=== PATIENT | female | born 1970 | race Caucasian/White ===

== ENCOUNTER 2021-02-21 13:21 | Emergency (ER) | payer BC, OTHER ==
[2021-02-21] MEDS ORDERED: CLINDAMYCIN-D5W 900 MG/50 ML*** 900 MG/50 ML BAG IV STA (15:00)
[2021-02-21] MEDS ORDERED: solu-MEDROL 125 MG, Sterile H2O 10 ml 2 ML IV ONE ×2 (15:01)
--- NOTE | 2021-02-21 15:04 | ERPHSYRPT ---
- History of Present Illness Time Seen by Provider: 02/21/21 13:34 Source: patient Exam Limitations: no limitations Patient Subjective Stated Complaint: stung by bees x2 left face 2 days ago. Triage Nursing Assessment: aaox3, c/o swelling/infection to left side of face s/p stung by bees left side of face 2 days ago. states increasing swelling pain and draining from affected area. Afebrile, resp easy, walked in. Physician History: 50 years old healthy female presented in the ER with chief complaint of swelling left lower jaw/upper neck after she got stung by a hornet 2 days ago. Patient reports having gradually increasing swelling with itching/burning sensation, blistering has been using [id number] stuff to control it but it seems worsening. This morning she woke up with discharge of serosanguineous material. Denies any difficulty breathing or swallowing. No fever or chills reported. Pain is dull burning/aching mild to moderate and feeling of tightness in the jaw. Timing/Duration: day(s) (2), constant, gradual onset, worse Quality: burning, itchy Severity: moderate Location: face, neck Possible Causes: insect sting Modifying Factors: Worsens With: scratching Associated Symptoms: change in skin texture, edema, rash, swelling/mass/lumps, tingling, No difficulty breathing Allergies/Adverse Reactions: No Known Drug Allergies Allergy (Unverified 02/21/21 18:53) Hx Tetanus, Diphtheria Vaccination/Date Given: Yes Hx Influenza Vaccination/Date Given: No Hx Pneumococcal Vaccination/Date Given: No Travel Risk - International Travel Have you traveled outside of the country in past 3 weeks: No - Coronavirus Screening Are you exhibiting any of the following symptoms?: No Close contact with a COVID-19 positive Pt in past 14-21 Days: No - Vaccine Status Have you recieved a Covid-19 vaccination: Yes News Correspondent: Moderna - Vaccination Dates Date of 2cond Vaccination (if applicable): 12/30/20 - Review of Systems Constitutional: No Symptoms Eyes: No Symptoms Ears, Nose, & Throat: Mouth Pain, Other Respiratory: No Symptoms Cardiac: No Symptoms Abdominal/Gastrointestinal: No Symptoms Genitourinary Symptoms: No Symptoms Musculoskeletal: No Symptoms Skin: Cellulitis, Induration, Pruritis, Rash, Skin Lesions Neurological: No Symptoms Psychological: No Symptoms Endocrine: No Symptoms Hematologic/Lymphatic: No Symptoms - Past Medical History Neurological History: No Pertinent History ENT History: No Pertinent History Cardiac History: No Pertinent History Respiratory History: No Pertinent History Endocrine Medical History: No Pertinent History Musculoskeletal History: No Pertinent History GI Medical History: No Pertinent History History: No Pertinent History Psycho-Social History: No Pertinent History Female Reproductive Disorders: No Pertinent History - Past Surgical History Other Surgical History: tubal ligation - Social History Smoking Status: Current every day smoker How long have you smoked: 20 yrs Exposure to second hand smoke: Yes Drug Use: none - Female History Hx Last Menstrual Period: postmenopausal Hx Now: No - Nursing Vital Signs Nursing Vital Signs: Initial Vital Signs Temperature 97.8 F 02/21/21 14:07 Pulse Rate 97 H 02/21/21 14:07 Respiratory Rate 18 02/21/21 14:07 Blood Pressure 152/86 02/21/21 14:07 O2 Sat by Pulse Oximetry 98 02/21/21 14:07 Pain Scale Pain Intensity 0 - Physical Exam General Appearance: no apparent distress, alert Eye Exam: PERRL/EOMI, eyes nml inspection Ears, Nose, Throat Exam: TMs normal, pharynx normal Neck Exam: supple, full range of motion, other (Diffuse swelling along left angle of mandible/upper neck with a central 2-3 sinuses draining with induration around, warm and tender to touch, firm consistency, 8 x 7 cm no limitation mov ements of jaw but painful), No limited range of motion Respiratory Exam: normal breath sounds, lungs clear Cardiovascular Exam: regular rate/rhythm, normal heart sounds Back Exam: normal range of motion Extremity Exam: normal inspection, normal range of motion Neurologic Exam: alert, oriented x 3, cooperative Skin Exam: normal color SpO2 Interpretation: normal SpO2: 98 O2 Delivery: Room Air Ordered Tests: Medication Summary Discontinued Medications Generic Name Dose Route Start Last Admin Trade Name Freq PRN Reason Stop Dose Admin Methylprednisolone Sodium 0 mg 02/21/21 15:01 02/21/21 15:16 Succinate 125 mg/ Sterile IV 02/21/21 15:02 125 mg Water 2 ml STAT ONE Administration Dexamethasone Sodium Phosphate Confirm 02/21/21 19:12 Decadron 10mg Inj. Administered 02/21/21 19:13 Dose 10 mg .ROUTE .STK-MED ONE Dexamethasone Sodium Phosphate 10 mg 02/21/21 19:18 02/21/21 19:22 Decadron 10mg Inj. PO 02/21/21 19:19 10 mg STAT ONE Administration Diphtheria/Tetanus/Acell Pertussis 0.5 ml 02/21/21 15:05 02/21/21 15:17 Adacel Vial IM 02/21/21 15:06 0.5 ml .ONCE ONE Administration Diphtheria/Tetanus/Acell Pertussis Confirm 02/21/21 15:12 Adacel Vial Administered 02/21/21 15:13 Dose 0.5 ml IM .STK-MED ONE Clindamycin HCl/Dextrose 900 mg in 50 mls @ 100 mls/hr 02/21/21 15:00 02/21/21 16:15 Clindamycin-D5w 900 Mg/50 Ml IV 02/21/21 15:29 Infused STAT STA Infusion Clindamycin HCl/Dextrose Confirm 02/21/21 15:12 Clindamycin-D5w 900 Mg/50 Ml Administered 02/21/21 15:13 Dose 900 mg in 50 mls @ ud IV .STK-MED ONE Methylprednisolone Sodium Succinate Confirm 02/21/21 15:11 Solu-Medrol Administered 02/21/21 15:12 Dose 125 mg .ROUTE .STK-MED ONE Sterile Water Confirm 02/21/21 15:11 Sterile H2o 10 Ml Administered 02/21/21 15:12 Dose 10 ml IJ .STK-MED ONE Lab/Rad Data: Laboratory Result Diagrams 02/21/21 14:30 02/21/21 14:30 Laboratory Results 02/21/21 02/21/21 02/21/21 Range/Units 14:59 14:30 14:30 WBC 9.5 (4.0-10.5) K/mm3 RBC 4.07 L (4.1-5.4) M/mm3 Hgb 12.3 (12.0-16.0) gm/dl Hct 38.4 (35-47) % MCV 94.3 (78-100) fl MCH 30.2 (26-32) pg MCHC 32.0 (32-36) g/dl RDW 13.6 (11.5-14.0) % Plt Count 260 (150-450) K/mm3 MPV 11.1 H (7.5-11.0) fl Gran % 71.0 H (36.0-66.0) % Eos # (Auto) 0.29 (0-0.5) Absolute Lymphs (auto) 1.70 (1.0-4.6) Absolute Monos (auto) 0.74 (0.0-1.3) Lymphocytes % 18.0 L (24.0-44.0) % Monocytes % 7.8 (0.0-12.0) % Eosinophils % 3.1 (0.00-5.0) % Basophils % 0.1 (0.0-0.4) % Absolute Granulocytes 6.72 (1.4-6.9) Basophils # 0.01 (0-0.4) Sodium 135 L (137-145) mmol/L Potassium 3.8 (3.5-5.1) mmol/L Chloride 101 (98-107) mmol/L Carbon Dioxide 23 (22-30) mmol/L Anion Gap 14.0 (5-15) MEQ/L BUN 12 (7-17) mg/dL Creatinine 0.77 (0.52-1.04) mg/dL Estimated GFR > 60.0 ML/MIN Glucose 98 (74-106) mg/dL Lactic Acid 1.3 (0.4-2.0) Calcium 8.9 (8.4-10.2) mg/dL Total Bilirubin 0.60 (0.2-1.3) mg/dL AST 33 (14-36) U/L ALT 13 (0-35) U/L Alkaline Phosphatase 94 (38-126) U/L Serum Total Protein 7.5 (6.3-8.2) g/dL Albumin 4.2 (3.5-5.0) g/dL - Progress Progress: improved, pain not gone completely Progress Note: 02/21/21 19:03 She is given symptomatic treatment for pain, Decadron and clindamycin. Has normal white count, lactate. CT revealed stranding and small amount of fluid involving portion of left face and neck with thickening of platysma and a small amount of fluid deep to the platysma extending adjacent to the left parotid gland and trace fluid extending inferiorly into the neck on the left. There is mild overlying skin thickening as well. No obvious abscess. No ENT services are available here. No ENT services available in [place]. I have called [facility] and patient does not want to go there and wants to leave. She would follow-up with her primary care. My worries about necrotizing fasciitis which is not very common in the head neck area but still can happen. Patient is aware of the fact that just taking oral antibiotics she can have the worsening of condition but still wants to leave. She reports that she will come back if has any worsening of condition or will go to higher level of care. I will continue with clindamycin and steroids to go home and outpatient follow-up Tuesday. Discussed signs symptoms of worsening which she seems understanding. Counseled pt/family regarding: lab results, diagnosis, need for follow-up, rad results - Departure Departure Disposition: Home Clinical Impression: Facial cellulitis, Cellulitis, neck Insect bite Qualifiers: Encounter type: initial encounter Site of insect bite: unspecified part of neck Qualified Code(s): S10.96XA - Insect bite of unspecified part of neck, initial encounter Condition: Stable Critical Care Time: No Referrals: JAMAR MCCARTY [Primary Care Provider] - (Tuesday for reevaluation) Instructions: Cellulitis (Skin Infection), Adult (DC) Additional Instructions: Take Tylenol/ibuprofen as needed. Continue with antibiotics and steroid. Follow-up with primary care for reevaluation. Also call ENT for possible appointment early next week. Return to ER for increasing pain, change in the color of skin, increasing discharge, fever chills or difficulty movements of neck, difficulty breathing or swallowing etc. Prescriptions: Clindamycin HCl 150 mg [Cleocin 150 mg Capsule] 2 cap PO QID 10 Days #80 cap Prednisone 20 mg [Deltasone 20 mg] 60 mg PO DAILY 5 Days #15 tablet
[2021-02-21] MEDS ORDERED: Adacel Vial IM ONE ×2 (15:05→15:12)
[2021-02-21] MEDS ORDERED: Sterile H2O 10 ml IJ ONE (15:11)
[2021-02-21] MEDS ORDERED: solu-MEDROL ONE (15:11)
[2021-02-21] MEDS ORDERED: CLINDAMYCIN-D5W 900 MG/50 ML*** 900 MG/50 ML BAG IV ONE (15:12)
[2021-02-21 15:26] LABS: Absolute Neutrophil Ct (ANC) 6.72 (1.4-6.9); BASOPHIL % 0.1 % (0.0-0.4); Basophil (Absolute #) 0.01 (0-0.4); Eosinophil % 3.1 % (0.00-5.0); Eosinophil (Absolute #) 0.29 (0-0.5); Hematocrit 38.4 % (35-47); Hemoglobin 12.3 gm/dl (12.0-16.0); Mean Cell Volume 94.3 fl (78-100); Mean Corpuscular Hemoglobin 30.2 pg (26-32); Mean Platelet Volume 11.1 fl (7.5-11.0); Monocyte (Absolute #) 0.74 (0.0-1.3); Monocytes % 7.8 % (0.0-12.0); Platelet Count 260 K/mm3 (150-450); Red Blood Count 4.07 M/mm3 (4.1-5.4); Red Cell Distribution Width 13.6 % (11.5-14.0); White Blood Count 9.5 K/mm3 (4.0-10.5)
[2021-02-21 15:35] LABS: ALBUMIN 4.2 g/dL (3.5-5.0); ALKALINE PHOSPHATASE 94 U/L (38-126); BLOOD UREA NITROGEN 12 mg/dL (7-17); CHLORIDE 101 mmol/L (98-107); Calcium 8.9 mg/dL (8.4-10.2); Carbon Dioxide 23 mmol/L (22-30); Creatinine 1 0.77 mg/dL (0.52-1.04); EST GLOMERULAR FILTRATION RATE > 60.0 ML/MIN; Glucose 98 mg/dL (74-106); Potassium 3.8 mmol/L (3.5-5.1); SGOT/AST 33 U/L (14-36); SGPT/ALT 13 U/L (0-35); SODIUM 135 mmol/L (137-145); Total Protein 7.5 g/dL (6.3-8.2)
[2021-02-21] MEDS ORDERED: DECADRON 10MG INJ. IV ONE (18:53)
[2021-02-21] MEDS ORDERED: DECADRON 10MG INJ. ONE (19:12)
[2021-02-21] MEDS ORDERED: DECADRON 10MG INJ. PO ONE (19:18)
[2021-02-21 19:20] VITALS: BP 105/68; PULSE 96
--- NOTE | 2021-02-21 20:18 | XRAY ---
Indication: Left facial swelling following bee sting 2 days ago. Multiple contiguous axial images obtained through the neck with contrast using 80 cc Isovue 370 contrast. Cutaneous BB placed over the lesion of interest. Comparison: None Left mandible, face, and neck demonstrates moderate cutaneous/subcutaneous soft tissue swelling/edema without focal walled off fluid collection or emphysema. Scattered centimeter/subcentimeter cervical and submandibular lymph nodes bilaterally. No pathologic lymphadenopathy. Parotid and submandibular glands are bilaterally symmetric. Super and infraglottic airway widely patent. Normal epiglottis. Cervical spine intact with mild/moderate C4-C7 degenerative changes. Base of the brain and lung apices unremarkable. Impression: Left face, mandible, and neck soft tissue swelling/edema presumably related to bee sting. No walled off fluid collection, emphysema, or pathologic lymphadenopathy. Comment: Preliminary interpretation made by [facility]. No critical discrepancy.
[2021-02-22 22:47] VITALS: O2SAT 98
== END 2021-02-21 19:22 | disposition home or self-care (01) ==
LOC: ED 13:21
DX: L03.211 Cellulitis of face (principal); L03.221 Cellulitis of neck; S10.96XA Insect bite of unspecified part of neck, initial encounter
CPT/HCPCS: 36000; 36415; 70491; 80053; 83605; 85025; 87040; 90471; 90715; 96374; 99284; J1100; J2930